=== PATIENT | male | born 1955 | race African-American/Black ===

== ENCOUNTER 2016-10-15 13:04 | Emergency (ER) | payer MEDICARE, MEDICAID ==
[~2016-10-15] VITALS: Ht 162.6 cm; Wt 54.4 kg
[~2016-10-15 13:04] MED LIST: DIURIL25 MG ORAL; IBUPROFEN800 MG ORAL; NAPROSYN500 M1 ORAL; NKM; SEROQUEL50 MG ORAL; TRAMADOL HCL50 MG ORAL; TYLENOL EXTRA500 MG ORAL; UNOBMED
--- NOTE | 2016-10-15 14:09 | Emergency Room Report ---
History of Present Illness General Chief Complaint: Pain Source: Patient, Medical Record Present Illness HPI 61 YO male Pt. presents to the ED c/o of exacerbation of his arthritis x2 days. reports 10/10 pain in the bilateral hands, localized/non-radiating. pt. states pain is usually relieved up to 4 months with IM Toradol. 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 Patient states he has a history of arthritis and he usually takes Tylenol as needed and during acute flares of his pain he requires Toradol IM. Patient denies trauma or recent injury patient denies redness, increased temperature about the joints , changes in sensation or skin color changes to the affected extremities.Denies numbness tingling or loss of sensation or gross motor movements of the extremities, incontinence of bowel or bladder. Denies CP, Palpitations, LOC, AMS , dizziness, Changes in Vision, Sensation, paresthesias, or a sudden severe headache. Allergies: Coded Allergies: No Known Allergies (Unverified , 07/31/14) Patient History Past Medical History: see triage record Past Surgical History: none Pertinent Family History: none Immunizations: UTD Reviewed Nursing Documentation: PMH: Agreed, PSxH: Agreed Nursing Documentation-PMH Past Medical History: No History, Except For Hx Cardiac Problems: No Hx Hypertension: No Hx Pacemaker: No Hx Asthma: No Hx COPD: No Hx Diabetes: No Hx Cancer: No Hx Dialysis: No Hx Neurological Problems: Yes - Arthritis Hx Cerebrovascular Accident: No Hx Seizures: No Review of Systems All Other Systems: negative except mentioned in HPI Physical Exam Vital Signs Date Time Temp Pulse Resp B/P Pulse Ox O2 Delivery O2 Flow Rate FiO2 10/15/16 13:25 98.1 71 18 129/81 99 Room Air Sp02 EP Interpretation: reviewed, normal General Appearance: no apparent distress, alert, GCS 15, non-toxic Head: normocephalic, atraumatic Eyes: bilateral eye PERRL, bilateral eye normal inspection ENT: hearing grossly normal, normal pharynx, no angioedema, normal voice Neck: full range of motion, supple/symm/no masses Respiratory: chest non-tender, lungs clear, normal breath sounds, speaking full sentences Cardiovascular #1: regular rate, rhythm, no edema Rectal: deferred Genitourinary: normal inspection, no CVA tenderness Musculoskeletal: back normal, gait/station normal, normal range of motion, no calf tenderness, swelling - multiple swollen joints in the phalanges , no erythema, no palpable TTP. pt. has FROM , no obvious deformity, no crepitus Neurologic: alert, oriented x3, responsive, motor strength/tone normal, sensory intact, speech normal Psychiatric: judgement/insight normal, memory normal, mood/affect normal, no suicidal/homicidal ideation Skin: normal color, no rash, warm/dry, well hydrated Lymphatic: no adenopathy Medical Decision Making PA Attestation Dr. Rebolledo is my supervising Physician whom patient management has been discussed with. Diagnostic Impression: Primary Impression: Arthritis ER Course Pt. presents to the ED c/o of exacerbation of his arthritis x2 days. reports 10/ 10 pain in the bilateral hands. pt. states pain is usually relieved up to 4 months with IM Toradol. Ddx considered but are not limited to arthritis, gout, RA Vital signs: are WNL, pt. is afebrile H&PE are most consistent with chronic arthritis of the hands. ORDERS: none required at this time, the diagnosis is clinical ED INTERVENTIONS: -60mg IM Toradol DISCHARGE: At this time pt. is stable for d/c to home. Will provide printed patient care instructions, and any necessary prescriptions. Care plan and follow up instructions have been discussed with the patient prior to discharge. Last Vital Signs Date Time Temp Pulse Resp B/P Pulse Ox O2 Delivery O2 Flow Rate FiO2 10/15/16 13:25 98.1 71 18 129/81 99 Room Air Disposition: HOME, SELF-CARE Condition: Stable Scripts Acetaminophen* (TYLENOL EXTRA STRENGTH*) 500 Mg Tablet 500 MG ORAL Q6H, #30 TAB 0 Refills Prov: Tammy Wesley 10/15/16 Patient Instructions: Arthritis, [id number] Additional Instructions: Take medications as directed. Follow up with PCP in 3-5 days Return sooner to ED if new symptoms occur, or current symptoms become worse. Tammy Wesley Oct 15, 2016 14:09
[2016-10-15] MEDS ORDERED: TYLENOL EXTRA500 MG ORAL (14:10)
[2016-10-15] MEDS ORDERED: Ketorolac 60mg Inj IM ONE (14:15)
[2016-10-15 14:30] VITALS: BP 130/78
== END 2016-10-15 14:30 | disposition home or self-care (01) ==
LOC: EMR 14:09
DX: M19.042 Primary osteoarthritis, left hand (principal); M19.041 Primary osteoarthritis, right hand
CPT/HCPCS: 96372; 99283

== ENCOUNTER 2016-12-11 10:36 | Emergency (ER) | payer MEDICARE, MEDICAID ==
[~2016-12-11] VITALS: Ht 162.6 cm; Wt 54.4 kg
[2016-12-11 11:00] VITALS: BP 154/93
[2016-12-11] MEDS ORDERED: BENADRYL25 MG ORAL (11:05)
[2016-12-11 11:25] VITALS: BP 154/93
--- NOTE | 2016-12-11 20:29 | Emergency Room Report ---
History of Present Illness General Chief Complaint: Pain Source: Medical Record Present Illness HPI Patient with apparent chronic pain. Allegedly pain for 2 months. Taking benadryl without help. See triage notes as patient left prior to my full evaluation. Allergies: Coded Allergies: No Known Allergies (Unverified , 07/31/14) Patient History Past Medical History: see triage record Social History: Reports: smoking Social History Narrative disabled Reviewed Nursing Documentation: PMH: Agreed, PSxH: Agreed Nursing Documentation-PMH Past Medical History: No History, Except For Hx Cardiac Problems: No Hx Hypertension: No Hx Pacemaker: No Hx Asthma: No Hx COPD: No Hx Diabetes: No Hx Cancer: No Hx Dialysis: No Hx Neurological Problems: Yes - Arthritis Hx Cerebrovascular Accident: No Hx Seizures: No Physical Exam Vital Signs Date Time Temp Pulse Resp B/P Pulse Ox O2 Delivery O2 Flow Rate FiO2 12/11/16 11:00 98.2 73 16 154/93 100 Room Air Sp02 EP Interpretation: reviewed, normal General Appearance: no apparent distress, alert Respiratory: no respiratory distress Musculoskeletal: gait/station normal Neurologic: grossly normal Medical Decision Making Diagnostic Impression: Primary Impression: LWBSMD Additional Impression: Chronic pain Qualified Codes: G89.29 - Other chronic pain ER Course Patient seen waiting in chair in [facility]. Asked to wait for full eval. Patient would not wait. Last Vital Signs Date Time Temp Pulse Resp B/P Pulse Ox O2 Delivery O2 Flow Rate FiO2 12/11/16 11:25 98.2 73 16 154/93 100 Room Air Status: unchanged Disposition: LEFT W/OUT BEING SEEN Condition: Unknown Referrals: NOT CHOSEN IPA/,REFERRING (PCP) Wai Jacobs M.D. Dec 11, 2016 20:29
== END 2016-12-11 11:45 | disposition left against medical advice (07) ==
LOC: EMR 11:45
DX: G89.29 Other chronic pain (principal); F17.200 Nicotine dependence, unspecified, uncomplicated; M19.90 Unspecified osteoarthritis, unspecified site; Z53.21 Procedure and treatment not carried out due to patient leaving prior to being seen by health care provider
CPT/HCPCS: 99281

== ENCOUNTER 2016-12-29 14:43 | Emergency (ER) | payer MEDICARE, MEDICAID ==
[~2016-12-29] VITALS: Ht 157.5 cm; Wt 54.4 kg
[~2016-12-29 14:43] MED LIST changes: +BENADRYL25 MG ORAL
[2016-12-29 15:10] VITALS: BP 142/85
[2016-12-29] MEDS ORDERED: Ketorolac 60mg Inj IM ONE (15:30)
[2016-12-29] MEDS ORDERED: TYLENOL EXTRA500 MG ORAL (15:38)
--- NOTE | 2016-12-29 15:38 | Emergency Room Report ---
History of Present Illness General Chief Complaint: Pain Source: Patient, EMS Present Illness HPI 61-year-old male presents emergency department complaining of exacerbation of chronic arthritis of the hands and knees bilaterally x4 days. Patient states that he usually takes Tylenol to resolve his pain however he is now out of his medication and will need refill. Patient states that Toradol gives him moderate pain relief for several days. he denies fall or trauma. Patient denies erythema, fevers, or chills. Denies numbness tingling or loss of sensation or gross motor movements of the extremities, incontinence of bowel or bladder. Denies CP, Palpitations, LOC, AMS, dizziness, Changes in Vision, Sensation, paresthesias, or a sudden severe headache. Allergies: Coded Allergies: No Known Allergies (Unverified , 07/31/14) Patient History Past Medical History: see triage record Past Surgical History: none Pertinent Family History: none Immunizations: UTD Reviewed Nursing Documentation: PMH: Agreed, PSxH: Agreed Nursing Documentation-PMH Hx Cardiac Problems: No Hx Hypertension: No Hx Pacemaker: No Hx Asthma: No Hx COPD: No Hx Diabetes: No Hx Cancer: No Hx Dialysis: No Hx Neurological Problems: Yes - Arthritis Hx Cerebrovascular Accident: No Hx Seizures: No Review of Systems All Other Systems: negative except mentioned in HPI Physical Exam Vital Signs Date Time Temp Pulse Resp B/P Pulse Ox O2 Delivery O2 Flow Rate FiO2 12/29/16 15:06 98.1 92 14 142/85 99 Room Air Sp02 EP Interpretation: reviewed, normal General Appearance: no apparent distress, alert, GCS 15, non-toxic Head: normocephalic, atraumatic Eyes: bilateral eye PERRL, bilateral eye normal inspection ENT: hearing grossly normal, normal pharynx, no angioedema, normal voice Neck: full range of motion, supple/symm/no masses Respiratory: lungs clear, normal breath sounds, speaking full sentences Cardiovascular #1: regular rate, rhythm, no edema Musculoskeletal: back normal, gait/station normal, normal range of motion - FROM with pain of the fingers bilaterally, and bilateral knees, knuckles have slight deformity, no signs of infeciton. , non-tender, no calf tenderness Neurologic: alert, oriented x3, responsive, motor strength/tone normal, sensory intact, normal gait, speech normal Psychiatric: judgement/insight normal, memory normal, mood/affect normal, no suicidal/homicidal ideation Skin: normal color, no rash, warm/dry, well hydrated Medical Decision Making PA Attestation Dr. Lopez is my supervising Physician whom patient management has been discussed with. Diagnostic Impression: Primary Impression: Arthritis ER Course Patient presents to the emergency department complaining of being out of his Tylenol for which he takes for chronic arthritis, pt. states Toradol relieves his symptoms tremendously. Ddx considered: arthritis, medication refill, chronic pain, drug seeking. Vital signs reviewed and are WNL during ED visit. Pt. is afebrile with no signs of infection No new symptoms, and denies recent trauma. Neurovascular is intact to pain. FROM with mild pain. *Pt. describes pain today in bilateral hands, and knees. ORDERS: none warranted at this time. INTERVENTIONS: - 60mg IM Toradol D/W Pt. that for his recurrent pain management it is recommended to consult PCP DISCHARGE: At this time pt. is stable for d/c to home. Will provide printed patient care instructions, and any necessary prescriptions. Care plan and follow up instructions have been discussed with the patient prior to discharge. Last Vital Signs Date Time Temp Pulse Resp B/P Pulse Ox O2 Delivery O2 Flow Rate FiO2 12/29/16 15:10 98.0 92 14 142/85 99 Room Air Disposition: HOME, SELF-CARE Condition: Stable Scripts Acetaminophen* (TYLENOL EXTRA STRENGTH*) 500 Mg Tablet 500 MG ORAL Q6H, #30 TAB 0 Refills Prov: Tammy Wesley 12/29/16 Patient Instructions: Chronic Pain Additional Instructions: Take medications as directed. Follow up with PCP in 3-5 days Return sooner to ED if new symptoms occur, or current symptoms become worse. - Please note that this Emergency Department Report was dictated using [employer] experience leader technology software, occasionally this can lead to erroneous entry secondary to interpretation by the dictation equipment. Tammy Wesley Dec 29, 2016 15:38
[2016-12-29 15:55] VITALS: BP 142/85
== END 2016-12-29 15:56 | disposition home or self-care (01) ==
LOC: EMR 15:38
DX: M19.90 Unspecified osteoarthritis, unspecified site (principal)
CPT/HCPCS: 96372; 99283

== ENCOUNTER 2019-11-21 22:18 | Emergency (ER) | payer MEDICARE, MEDICAID ==
[~2019-11-21] VITALS: Ht 162.6 cm; Wt 49.9 kg
[2019-11-21 22:25] VITALS: BP 178/82
--- NOTE | 2019-11-21 22:25 | NUR ---
ED Nurse Note: Patient brought in by RA from [facility] c/o SOB. As per EMS, patient is desaturating at low 70s, non rebreather was placed detective captain. Afebrile. Pt placed on bank note designer. ERMD at bedside.
--- NOTE | 2019-11-21 22:43 | NUR ---
ED Nurse Note: IV line established on right EJ by SLOAN. Blood and urine specimen collected and sent to lab.
[2019-11-21] MEDS ORDERED: Albuterol ud Inhalation HHN ONE (22:45)
--- NOTE | 2019-11-21 22:46 | Emergency Room Report ---
History of Present Illness General Chief Complaint: Upper Respiratory Illness Source: Patient Present Illness HPI This is a 64-year-old male coming from custodial. He has history of CVA, hypertension, diabetes COPD to name a few. He presents with respiratory distress. He is from a custodial. Per EMS, at baseline he is nonverbal but opens his eyes. An hour ago he started having respiratory distress with low oxygenation. EMS said that his pulse ox on room air was in the 70 percentile. They placed him on CPAP which helped. Now he is more awake so they switched to nonrebreather. Patient unable to get any other history. There was no noted fever or chills but there is unknown chest pain. Allergies: Coded Allergies: No Known Allergies (Unverified , 07/31/14) Patient History Past Medical History: see triage record, old chart reviewed Past Surgical History: other Pertinent Family History: none Social History: Denies: smoking Immunizations: other Reviewed Nursing Documentation: PMH: Agreed; PSxH: Agreed Nursing Documentation-PMH Hx Cardiac Problems: Yes - chf Hx Hypertension: No Hx Pacemaker: No Hx Asthma: No Hx COPD: Yes Hx Diabetes: No Hx Cancer: No Hx Dialysis: No Hx Neurological Problems: Yes - Arthritis Hx Cerebrovascular Accident: Yes Hx Seizures: No Review of Systems Eye: Denies: eye pain, blurred vision ENT: Denies: ear pain, nose congestion, throat swelling Respiratory: Reports: cough, shortness of breath Cardiovascular: Denies: chest pain, palpitations Gastrointestinal: Denies: abdominal pain, diarrhea, nausea, vomiting Musculoskeletal: Denies: back pain, joint pain Skin: Denies: rash Neurological: Denies: headache, numbness Endocrine: Denies: increased thirst, increased urine Hematologic/Lymphatic: Denies: easy bruising All Other Systems: negative except mentioned in HPI Physical Exam Vital Signs Date Time Temp Pulse Resp B/P (MAP) Pulse Ox O2 Delivery O2 Flow Rate FiO2 11/21/19 22:18 99.0 123 22 178/82 (114) 82 Vitals with tachycardia and hypoxia Sp02 EP Interpretation: reviewed, abnormal General Appearance: moderate distress, cachetic, Chronically Ill Head: normocephalic, atraumatic Eyes: bilateral eye PERRL, bilateral eye EOMI ENT: hearing grossly normal, normal pharynx Neck: full range of motion, supple, no meningismus Respiratory: chest non-tender, respiratory distress, decreased breath sounds, accessory muscle use, crackles, rhonchi Cardiovascular #1: regular rate, rhythm, no murmur Gastrointestinal: normal bowel sounds, non tender, no mass, no organomegaly, no bruit, non-distended Musculoskeletal: back normal, other - Very contracted Psychiatric: mood/affect normal Procedures Critical Care Time Critical Care Time Critical care is mandated in this patient who presented with acute respiratory failure with hypoxemia. This secondary to infection. Patient require my urgent intervention to attenuate the risks of metabolic collapse which may lead to cardiovascular collapse and . Critical care time is 35 minutes excluding any reportable procedure. Critical care time included evaluation, multiple reevaluation, looking at old charts, interpreting laboratory and diagnostic data, discussing case with patient and family and consultants, and charting. Medical Decision Making Diagnostic Impression: Primary Impression: Acute respiratory failure with hypoxemia Additional Impressions: Sepsis Qualified Codes: A41.9 - Sepsis, unspecified organism; R65.20 - Severe sepsis without septic shock; J96.01 - Acute respiratory failure with hypoxia HCAP (healthcare-associated pneumonia) ER Course Patient presents with healthcare associated pneumonia with respiratory failure requiring oxygenation. He is much improved after breathing treatment and oxygen. Now 98% on 2 L. He had transient hypotension that resolved with IV fluid. He is actually more awake and follows simple command and tracks. Patient is stable for transfer versus admission. I discussed the case with Dr. Carrillo who accepted the pt for transfer to [facility]. EKG Diagnostic Results Rate: tachycardiac Rhythm: NSR ST Segments: other - NSST changes Rhythm Strip Diag. Results EP Interpretation: yes Rate: 110 Rhythm: NSR, no PVC's Chest X-Ray Diagnostic Results Chest X-Ray Diagnostic Results : Chest X-Ray Ordered: Yes # of Views/Limited/Complete: 1 View Indication: Shortness of Breath EP Interpretation: Yes Interpretation: no effusion, no pneumothorax, other - Lower lobe infiltrate Impression: Other - Right lower lobe infiltrate Electronically Signed by: Den Mejia MD Last Vital Signs Date Time Temp Pulse Resp B/P (MAP) Pulse Ox O2 Delivery O2 Flow Rate FiO2 11/21/19 22:18 99.0 123 22 178/82 (114) 82 Status: improved Disposition: XFER SHT-TRM HOSP Condition: Stable Den Mejia MD Nov 21, 2019 22:46
[2019-11-21] MEDS ORDERED: Acetaminophen 500mg (ES) tab ORAL ONE (23:00)
[2019-11-21] MEDS ORDERED: Acetaminophen 650 MG SUPP RECTAL ONE (23:00)
--- NOTE | 2019-11-21 23:00 | NUR ---
ED Nurse Note: RT at beside for breathing tx.
[2019-11-21 23:10] LABS: BASOPHILS % (AUTO) 0.8 % (0.0-2.0); EOSINOPHILS % (AUTO) 2.1 % (0.0-3.0); HEMATOCRIT 37.2 % (42.0-52.0); HEMOGLOBIN 12.3 G/DL (14.2-18.0); LYMPHOCYTES % (AUTO) 22.3 % (20.0-45.0); MEAN CORPUSCULAR VOLUME 74 FL (80-99); MONOCYTES % (AUTO) 5.4 % (1.0-10.0); NEUTROPHILS % (AUTO) 69.4 % (45.0-75.0); PLATELET COUNT 704 K/UL (150-450); RED BLOOD COUNT 5.01 M/UL (4.70-6.10); RED CELL DISTRIBUTION WIDTH 14.5 % (11.6-14.8); WHITE BLOOD COUNT 13.1 K/UL (4.8-10.8)
[2019-11-21 23:15] LABS: ANION GAP 10 mmol/L (5-15); BLOOD UREA NITROGEN 7 mg/dL (7-18); CALCIUM 8.9 MG/DL (8.5-10.1); CARBON DIOXIDE 23 MMOL/L (21-32); CHLORIDE 91 MMOL/L (98-107); CREATININE 0.5 MG/DL (0.55-1.30); SODIUM 124 MMOL/L (136-145)
[2019-11-21 23:23] LABS: APPEARANCE,URINE CLEAR; BILIRUBIN, URINE NEGATIVE (NEGATIVE); COLOR,URINE PALE YELLOW; GLUCOSE, URINE (UA) NEGATIVE (NEGATIVE); KETONES,URINE NEGATIVE (NEGATIVE); LEUKOCYTE ESTERASE ,URINE 1+ (NEGATIVE); NITRITE,URINE NEGATIVE (NEGATIVE); PH,URINE 6 (4.5-8.0); PROTEIN,URINE NEGATIVE (NEGATIVE); UROBILINOGEN,URINE 1 MG/DL (0.0-1.0)
[2019-11-21 23:30] LABS: ALANINE AMINOTRANSFERASE 42 U/L (12-78); ALBUMIN 3.4 G/DL (3.4-5.0); ALBUMIN/GLOBULIN RATIO 0.9 (1.0-2.7); ALKALINE PHOSPHATASE 93 U/L (46-116); ASPARTATE AMINO TRANSFERASE 32 U/L (15-37); BILIRUBIN,TOTAL 0.3 MG/DL (0.2-1.0); CKMB 2.5 NG/ML (0.0-3.6); CREATINE KINASE 77 U/L (26-308)
[2019-11-21] MEDS ORDERED: Cefepime HCl 1 GM in D5W 55 ML IVPB ONE (23:30)
--- NOTE | 2019-11-21 23:31 | NUR ---
ED Nurse Note: Per ERMD, pt is placed on 3L/min via nc, saturating 98%. Not in any distress.
[2019-11-22 00:16] VITALS: BP 63/40
--- NOTE | 2019-11-22 00:16 | NUR ---
ED Nurse Note: Pt BP is 63/40. ERMD notified. ERMD ordered 2L NS bolus.
[2019-11-22 01:16] VITALS: BP 145/75
[2019-11-22 03:10] VITALS: BP 133/79
--- NOTE | 2019-11-22 04:12 | NUR ---
ED Nurse Note: Report given to Karen LOWRY from [facility].
[2019-11-22 06:03] VITALS: BP 133/87
[2019-11-22 06:12] VITALS: BP 140/81
--- NOTE | 2019-11-22 06:12 | NUR ---
ED Nurse Note: Pt cleared by SLOAN to be transferred to [facility]. Report given to Karen LOWRY. Pt alert and orientedx2, verbally responsive. No SOB. Not in any distress. Sinus rhythm. On 3L/ min via nc, 100%. IV line on right EJ 18g patent and intact. All belongings sent with the patient. Pt was picked up by 2 EMT via alice.
--- NOTE | 2019-11-22 09:10 | Diagnostic Imaging Report ---
Indication: Shortness of breath Technique: One view of the chest Comparison: none Findings: There is hazy and reticular infiltrate at the right lung base. The pleural spaces, left lung are clear. The heart size is normal. Impression: Right basilar infiltrate, likely pneumonia. Correlate with clinical findings
== END 2019-11-22 06:15 | disposition short-term general hospital (02) ==
LOC: EDBD 22:18 → EMR 22:51
DX: A41.9 Sepsis, unspecified organism (principal); J18.8 Other pneumonia, unspecified organism; R65.20 Severe sepsis without septic shock; J96.01 Acute respiratory failure with hypoxia; I50.9 Heart failure, unspecified; J44.9 Chronic obstructive pulmonary disease, unspecified; Z86.73 Personal history of transient ischemic attack (TIA), and cerebral infarction without residual deficits
CPT/HCPCS: 36415; 71045; 80053; 81003; 82550; 82553; 83605; 84484; 85025; 85610; 85730; 87040; 87081; 93005; 96361; 96365; 96368; 99284; J0692; J1956; J7030